=== PATIENT | male | born 1990 | race Caucasian/White ===

== ENCOUNTER 2017-01-23 17:59 | Emergency (ER) | payer MEDICAID ==
[~2017-01-23] VITALS: Ht 172.7 cm; Wt 78.0 kg
--- NOTE | 2017-01-23 18:40 | NUR ---
Dr Walker at the bedside for eval and exam.
--- NOTE | 2017-01-23 19:26 | NUR ---
Knee immobilizer applied to pt's right knee/leg. Crutch training done, demonstrated proficiency. Gave pt d/c instructions, verbalized understanding.
== END 2017-01-23 19:26 | disposition home or self-care (01) ==
LOC: ER 17:59
DX: S83.004A Unspecified dislocation of right patella, initial encounter (principal); X50.9XXA Other and unspecified overexertion or strenuous movements or postures, initial encounter; Y93.89 Activity, other specified; Y92.9 Unspecified place or not applicable; Y99.9 Unspecified external cause status
CPT/HCPCS: A4663